=== PATIENT | male | born 1995 ===

== ENCOUNTER 2018-06-28 18:15 | Emergency (ER) | payer OTHER ==
--- NOTE | 2018-06-28 18:48 | EDPHY ---
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 Patient reports that he was cleaning the machine. Reports that he immediately started to bleed and he applied direct pressure. Denies any pain. Denies radiation, weakness, tingling, decreased range of motion. Reports tetanus is current. Modifying Factors: Direct pressure Comment: ROS: A comprehensive 10 system review of systems is otherwise negative aside from elements mentioned in the history of present illness. MEDICAL/SURGICAL/SOCIAL HISTORY: Medical history: Generally healthy. Does not take any regular medications. Surgical history: Denies Social history: Employed. Never smoked. CONSTITUTIONAL: Polite and cooperative young adult white male, awake and alert , no obvious distress HEENT: Atraumatic and normocephalic, PERRL, EOMI. Nares patent; no rhinorrhea; no nasal mucosal edema. Tympanic membranes clear. Oropharynx clear, no exudate and moist pink mucosa. Airway patent. No lymphadenopathy. No meningismus. Cardiovascular: Normal S1/S2, regular rate, regular rhythm, without murmur rub or gallop. PULMONARY/CHEST: Symmetrical and nontender. Clear to auscultation bilaterally. Good air movement. No accessory muscle usage. ABDOMEN: Soft, nondistended, nontender, no rebound, no guarding, no peritoneal signs, no masses or organomegaly. No CVAT. EXTREMITIES: 2/2 pulses, strength 5/5, left index finger pad shows 4 mm superficial skin avulsion with scant active bleeding. No nail involvement. PIP/ DIP/MCP flexion and extension intact. Good light touch sensation. no deformities, no clubbing, no cyanosis or edema. NEUROLOGICAL: no focal neuro deficits. GCS 15. SKIN: Warm and dry, no erythema. no rash. Good capillary refill. Source: Patient Exam Limitations: No limitations - Personal History Current Tetanus Diphtheria and Acellular Pertussis (TDAP): Yes - Medical/Surgical History Hx Asthma: No Hx Chronic Respiratory Disease: No Hx Diabetes: No Hx Cardiac Disease: No Hx Renal Disease: No Hx Cirrhosis: No Hx Alcoholism: No Hx HIV/AIDS: No Hx Splenectomy or Spleen Trauma: No - Social History Smoking Status: Never smoked Constitutional: Initial Vital Signs Temperature (C) 37 C 06/28/18 18:20 Heart Rate 93 06/28/18 18:20 Respiratory Rate 16 06/28/18 18:20 Blood Pressure 113/61 06/28/18 18:20 O2 Sat (%) 96 06/28/18 18:20 O2 Delivery Mode Room Air Allergies/Adverse Reactions: No Known Allergies Allergy (Unverified 06/28/18 18:20) Home Medications: Medication Instructions Recorded NK [No Known Home Meds] 06/28/18 Medical Decision Making ED Course/Re-evaluation: Vital signs reviewed and stable upon arrival. Tetanus up-to-date. Local anesthesia provided and irrigated copiously Superficial skin avulsion with no indication for suture Tourniquet applied for 5 min; Surgicel, Xeroform, tube gauze dressing applied. Good hemostasis was achieved. Verbal and written wound care instructions provided No signs of neurovascular compromise/tenting of skin/compartment syndrome/ extremities and joints examined above and below area of concern and are neurovascularly intact. This patient was seen under the supervision of my secondary supervising physician. I evaluated care for this patient with attending. Differential Diagnosis: Differential diagnosis includes but is not limited to avulsion, laceration, nerve injury, tendon injury, nail injury. Departure - Departure Disposition: Home, Routine, Self-Care Clinical Impression: Avulsion of skin of finger Qualifiers: Encounter type: initial encounter Qualified Code(s): S61.209A - Unspecified open wound of unspecified finger without damage to nail, initial encounter Condition: Good Instructions: Skin Avulsion (ED) Additional Instructions: Keep the dressing dry and in place for 3 days. After 48 hours, you may remove the dressing; wash the site daily with mild soap and water; then pat dry. Apply topical antibiotic ointment and keep clean sterile dressing applied until fully healed. Take Tylenol 650 mg every 4 hours and/or Ibuprofen 600 mg every 8 hours with food as needed for pain. Return to the ER immediately if you experience redness, red streaks, have fevers /chills, flu like symptoms, limited range of motion, or any other symptoms that concern you. Referrals: Antoni Clemons MD [Medical Doctor] - As per Instructions
[2018-06-28 21:08] VITALS: BP 131/88
== END 2018-06-28 21:06 | disposition home or self-care (01) ==
DX: S61.211A Laceration without foreign body of left index finger without damage to nail, initial encounter (principal); W29.0XXA Contact with powered kitchen appliance, initial encounter; Y93.G1 Activity, food preparation and clean up; Y92.511 Restaurant or cafe as the place of occurrence of the external cause; Y99.0 Civilian activity done for income or pay